=== PATIENT | male | born 1970 | race Caucasian/White ===

== ENCOUNTER 2017-02-21 08:18 | Emergency (ER) | payer BC ==
[~2017-02-21] VITALS: Ht 172.7 cm; Wt 90.7 kg
[~2017-02-21 08:18] MED LIST: ASPI-482 PO; LEVE500T56 PO
[2017-02-21] MEDS ORDERED: IV NORMAL SALINE 1000ML BAG 1,000 ML IV ONE ×3 (08:30→10:30)
[2017-02-21 08:36] LABS: BASO # 0.1 x10^3/uL (0.0-0.2); BASO % 1 % (0-3); EOS % 0 % (0-3); HEMATOCRIT 46.7 % (39.0-53.0); HEMOGLOBIN 15.3 g/dL (13.0-17.5); LYMPH # 2.7 x10^3/uL (1.0-4.8); LYMPH % 19 % (24-48); MEAN CORPUSCULAR HEMOGLOBIN 29 pg (25-35); MEAN CORPUSCULAR HGB CONC 33 g/dL (31-37); MEAN CORPUSCULAR VOLUME 89 fL (79-100); MONO % 5 % (0-9); NEUT % 75 % (31-73); PLATELET COUNT 244 x10^3/uL (140-400); RED BLOOD COUNT 5.27 x10^6/uL (4.30-5.70); RED CELL DISTRIBUTION WIDTH 14.1 % (11.5-14.5); WHITE BLOOD COUNT 13.7 x10^3/uL (4.0-11.0)
[2017-02-21] MEDS ORDERED: IOHEXOL 300 MG/ML 75 ML VIAL IV ONE (08:45)
[2017-02-21] MEDS ORDERED: PHENYTOIN SODIUM EXTENDED 100 MG CAPSULE PO ONE ×2 (08:45→10:00)
[2017-02-21] MEDS ORDERED: PHEN100C PO (08:53)
--- NOTE | 2017-02-21 08:53 | PHYS DOC ---
Past Medical History Past Medical History: Seizure Past Surgical History: No Surgical History Alcohol Use: None Drug Use: None Adult General Chief Complaint Chief Complaint: SEIZURE HPI HPI Patient is a 46 year old male who presents after a witnessed seizure. Patient has known history of seizure disorder, and initially states he doesn't think he supposed to be on any seizure medication. Records show he supposed to be on Keppra and patient states "I didn't like the way it made me feel" and refuses to take it. Patient is unsure of why he has seizures, diagnosed in recent years. Denies any alcohol or drugs, no fall or trauma. Patient was sitting in a truck with a friend who is dropping him off work when the seizure occurred. His approximated the last 7 minutes. Patient did not lose bladder, states he does have a sore tongue but this was from yesterday when he thinks maybe had a seizure. Patient has seen Dr. barry in the past, had a negative brain MRI in recent months. Patient denies any focal weakness. Patient does not follow with the primary care physician. Patient has some sort of psychiatric disorder, record shows similar episodes where he speaks in tangential thoughts, has difficulty answering direct questions. When asked about the chest pain he described yesterday, he starts to talk of feeling like there is a lego stuck in his chest. Review of Systems Review of Systems Constitutional: Denies fever or chills [] Eyes: Denies change in visual acuity, redness, or eye pain [] HENT: Denies nasal congestion or sore throat [] Respiratory: Denies cough or shortness of breath [] Cardiovascular: Denies current chest pain, reports he was having chest pain yesterday, vague in nature GI: Denies abdominal pain, nausea, vomiting, bloody stools or diarrhea [] : Denies dysuria or hematuria [] Musculoskeletal: Denies back pain or joint pain [] Integument: Denies rash or skin lesions [] Neurologic: Denies headache, focal weakness or sensory changes [] Current Medications Current Medications Current Medications Medications (Trade) Dose Ordered Sig/Whitley Start Time Stop Time Status Last Admin Dose Admin Cefepime HCl 2 gm/ Sodium Chloride 100 ml @ 200 mls/hr 1X ONCE 02/21/17 09:30 02/21/17 09:59 DC 02/21/17 09:51 200 MLS/HR Iohexol (Omnipaque 300 Mg/ml) 75 ml 1X ONCE 02/21/17 08:45 02/21/17 08:47 DC 02/21/17 09:07 75 ML Phenytoin Sodium (Dilantin) 500 mg 1X ONCE 02/21/17 10:00 02/21/17 10:01 DC 02/21/17 09:58 500 MG Sodium Chloride 1,000 ml @ 1,000 mls/hr 1X ONCE 02/21/17 10:30 02/21/17 11:29 DC 02/21/17 10:32 1,000 MLS/HR Allergies Allergies Allergies Coded Allergies Type Severity Reaction Last Updated Verified Penicillins Allergy Intermediate 07/09/16 Yes Physical Exam Physical Exam Constitutional: Well developed, well nourished, no acute distress, non-toxic appearance. [] HENT: Normocephalic, atraumatic, bilateral external ears normal, oropharynx moist, no oral exudates, nose normal. [] Eyes: PERRLA, EOMI, conjunctiva normal, no discharge. [] Neck: Normal range of motion, no tenderness, supple, no stridor. [] Cardiovascular:Heart rate tachycardia with regular rhythm, no murmur [] Lungs & Thorax: Bilateral breath sounds clear to auscultation, no wheeze or crackles Abdomen: Bowel sounds normal, soft, no tenderness, no masses, no pulsatile masses. [] Skin: Warm, dry, no erythema, no rash. [] Back: No tenderness, no CVA tenderness. [] Extremities: No tenderness, no cyanosis, no clubbing, ROM intact, no edema. [] Neurologic: Alert and oriented X 3, normal motor function, normal sensory function, no focal deficits noted. [] Psychologic: odd affect, tangential thoughts Current Patient Data Vital Signs Vital Signs Date Time Temp Pulse Resp B/P (MAP) Pulse Ox O2 Delivery O2 Flow Rate FiO2 02/21/17 12:40 100 18 145/91 (109) 96 Room Air 02/21/17 08:20 98.9 98.9 Lab Values Laboratory Tests Test 02/21/17 08:25 02/21/17 09:00 02/21/17 09:20 02/21/17 11:32 White Blood Count 13.7 x10^3/uL (4.0-11.0) H Red Blood Count 5.27 x10^6/uL (4.30-5.70) Hemoglobin 15.3 g/dL (13.0-17.5) Hematocrit 46.7 % (39.0-53.0) Mean Corpuscular Volume 89 fL (79-100) Mean Corpuscular Hemoglobin 29 pg (25-35) Mean Corpuscular Hemoglobin Concent 33 g/dL (31-37) Red Cell Distribution Width 14.1 % (11.5-14.5) Platelet Count 244 x10^3/uL (140-400) Neutrophils (%) (Auto) 75 % (31-73) H Lymphocytes (%) (Auto) 19 % (24-48) L Monocytes (%) (Auto) 5 % (0-9) Eosinophils (%) (Auto) 0 % (0-3) Basophils (%) (Auto) 1 % (0-3) Neutrophils # (Auto) 10.2 x10^3uL (1.8-7.7) H Lymphocytes # (Auto) 2.7 x10^3/uL (1.0-4.8) Monocytes # (Auto) 0.7 x10^3/uL (0.0-1.1) Eosinophils # (Auto) 0.1 x10^3/uL (0.0-0.7) Basophils # (Auto) 0.1 x10^3/uL (0.0-0.2) Lactic Acid Level 10.2 mmol/L (0.4-2.0) *H 1.6 mmol/L (0.4-2.0) Troponin I Quantitative < 0.017 ng/mL (0.000-0.055) Ethyl Alcohol Level < 10 mg/dL (0-10) Urine Collection Type Unknown Urine Color Yellow Urine Clarity Clear Urine pH 6.0 Urine Specific [place] 1.020 Urine Protein 30 mg/dL (NEG-TRACE) Urine Glucose (UA) Negative mg/dL (NEG) Urine Ketones (Stick) Negative mg/dL (NEG) Urine Blood Trace (NEG) Urine Nitrite Negative (NEG) Urine Bilirubin Negative (NEG) Urine Urobilinogen Dipstick 0.2 mg/dL (0.2 mg/dL) Urine Leukocyte Esterase Negative (NEG) Urine RBC 0 /HPF (0-2) Urine WBC Occ /HPF (0-4) Urine Squamous Epithelial Cells Few /LPF Urine Bacteria 0 /HPF (0-FEW) Urine Hyaline Casts Few /HPF Urine Mucus Mod /LPF Urine Sperm Present /HPF Urine Opiates Screen Neg (NEG) Urine Methadone Screen Neg (NEG) Urine Barbiturates Neg (NEG) Urine Phencyclidine Screen Neg (NEG) Urine Amphetamine/Methamphetamine Neg (NEG) Urine Benzodiazepines Screen Neg (NEG) Urine Cocaine Screen Neg (NEG) Urine Cannabinoids Screen Neg (NEG) Urine Ethyl Alcohol Neg (NEG) Sodium Level 138 mmol/L (136-145) Potassium Level 3.8 mmol/L (3.5-5.1) Chloride Level 105 mmol/L (98-107) Carbon Dioxide Level 23 mmol/L (21-32) Anion Gap 10 (6-14) Blood Urea Nitrogen 13 mg/dL (8-26) Creatinine 1.2 mg/dL (0.7-1.3) Estimated GFR (Cockcroft-Gault) 64.6 BUN/Creatinine Ratio 11 (6-20) Glucose Level 103 mg/dL (70-99) H Calcium Level 8.1 mg/dL (8.5-10.1) L Total Bilirubin 0.3 mg/dL (0.2-1.0) Aspartate Amino Transferase (AST) 18 U/L (15-37) Alanine Aminotransferase (ALT) 24 U/L (16-63) Alkaline Phosphatase 42 U/L (46-116) L Creatine Kinase 226 U/L (39-308) Total Protein 6.5 g/dL (6.4-8.2) Albumin 3.3 g/dL (3.4-5.0) L Albumin/Globulin Ratio 1.0 (1.0-1.7) Laboratory Tests 02/21/17 08:25 Laboratory Tests 02/21/17 09:20 EKG EKG 118 bpm, sinus tach, normal axis, normal intervals, no ST elevation or depression appreciated, nonischemic T waves [] Radiology/Procedures Radiology/Procedures CTA: Impression: There is no CT evidence of pulmonary embolism. Course & Med Decision Making Course & Med Decision Making Pertinent Labs and Imaging studies reviewed. (See chart for details) Pt meets SIRS criteria, lactate and blood cultures obtained, 1L NS IV bolus given. Pt loaded with 500mg po dilantin as he states he will take that but won' t take Keppra. labs/ua/uds/etoh ordered. CTA ordered due to O2 sats of 91% and tachy. Negative CTA, Lactae elevated and pt received significant fluid boluses. Pt given IV zosyn, although clear source not found. Repeat lactate normal, thought to be 2/2 to the seizure. Received second loading dose of dilantin and discharged with 300mg per day and recommended close f/u with neurology. Dragon Disclaimer Dragon Disclaimer This electronic medical record was generated, in whole or in part, using a voice recognition dictation system. Departure Departure Impression: Primary Impression: Seizure Additional Impression: Noncompliance Disposition: HOME, SELF-CARE Condition: STABLE Referrals: UNKNOWN PCP NAME (PCP) Scripts Phenytoin Sodium Extended (DILANTIN) 100 Mg Capsule 1 CAP PO TID, #90 CAP 0 Refills Prov: FELICITA LARA MD 02/21/17 Problem Qualifiers FELICITA LARA MD Feb 21, 2017 08:53
[2017-02-21 09:18] LABS: BARBITURATES NEG (NEG); BENZODIAZEPINES NEG (NEG); CANNABINOIDS NEG (NEG); COCAINE NEG (NEG); METHADONE NEG (NEG); OPIATES NEG (NEG); PHENCYCLIDINE NEG (NEG)
[2017-02-21] MEDS ORDERED: CEFEPIME HCL 2 GM in IV NORMAL SALINE 100ML 100 ML IV ONE (09:30)
[2017-02-21 09:40] LABS: CALCIUM 8.1 mg/dL (8.5-10.1); CREATININE 1.2 mg/dL (0.7-1.3); GFR 64.6; POTASSIUM 3.8 mmol/L (3.5-5.1)
--- NOTE | 2017-02-21 09:44 | RAD ---
CTA of the chest with contrast (pulmonary embolism protocol) 02/21/2017 Clinical History: Tachycardia with low oxygen saturation and chest pain. Technique: After the intravenous administration of 75 mL of Isovue-370, contiguous, 2 mm axial sections were obtained through the chest. 3-D MIP coronal and sagittal reconstructed images were obtained. One or more of the following individualized dose reduction techniques were utilized for this study: 1. Automated exposure control. 2. Adjustment of the mA and/or kV according to patient size. 3. Use of iterative reconstruction technique. Findings: No filling defects are seen within the major branches of either pulmonary artery. The heart is normal in size. The thoracic aorta is tortuous but tapers normally. No acute pulmonary infiltrate is seen. No pleural effusion or pneumothorax is noted. Degenerative changes are seen involving the thoracic spine. Impression: There is no CT evidence of pulmonary embolism.
[2017-02-21 09:46] LABS: ALBUMIN 3.3 g/dL (3.4-5.0); TOTAL BILIRUBIN 0.3 mg/dL (0.2-1.0); TOTAL PROTEIN 6.5 g/dL (6.4-8.2)
--- NOTE | 2017-02-21 09:52 | EKG ---
[facility] [address] [place] [address] Test Date: 2017-02-21 Test Time: 08:40:27 Pat Name: ETHEL SALMERON Department: Room: Gender: M Recycling Specialist: JASON : 1970 Requested By: FELICITA LARA Order Number: [id number] Reading MD: Roberto Hatch Measurements Intervals [place] Rate: 118 P: [place]: QRS: 61 QRSD: 106 T: 27 QT: 338 QTc: 476 Interpretive Statements SINUS TACHYCARDIA NON-SPECIFIC ST/T CHANGES Electronically Signed On 02-21-2017 16:55:57 CDT by Roberto Hatch
[2017-02-21 10:06] LABS: BILIRUBIN,URINE NEGATIVE (NEG); GLUCOSE,URINE NEGATIVE (NEG); NITRITE,URINE NEGATIVE (NEG); PROTEIN,URINE 30 mg/dL (NEG-TRACE); UROBILINOGEN,URINE 0.2 mg/dL (0.2 mg/dL)
[2017-02-21 10:40] LABS: BACTERIA,URINE 0 /HPF (0-FEW); RBC,URINE 0 /HPF (0-2); SPERM,URINE PRESENT /HPF; SQUAMOUS EPITHELIAL CELL,UR FEW /LPF; WBC,URINE OCC /HPF (0-4)
[2017-02-21 12:40] VITALS: BP 145/91
[2017-02-24 08:17] LABS: POTASSIUM ISTAT 4.2 mmol/L (3.5-5.0)
== END 2017-02-21 12:47 | disposition home or self-care (01) ==
LOC: ER 08:18
DX: R56.9 Unspecified convulsions (principal); Z91.19 Patient's noncompliance with other medical treatment and regimen; Z88.0 Allergy status to penicillin
CPT/HCPCS: 36415; 71275; 80047; 80053; 80305; 80320; 81001; 82550; 83605; 84484; 85027; 87040; 93005; 96361; 96365; 99285; J0692; J7030; Q9967; G0480; G0481

== ENCOUNTER 2017-07-23 17:41 | Emergency (ER) | payer BC ==
[~2017-07-23] VITALS: Ht 175.3 cm; Wt 90.7 kg
[~2017-07-23 17:41] MED LIST changes: +PHEN100C PO
[2017-07-23] MEDS ORDERED: IV NORMAL SALINE 1000ML BAG 1,000 ML IV ONE (18:00)
[2017-07-23 18:22] LABS: BASO # 0.1 x10^3/uL (0.0-0.2); BASO % 1 % (0-3); EOS % 1 % (0-3); HEMATOCRIT 48.1 % (39.0-53.0); HEMOGLOBIN 15.9 g/dL (13.0-17.5); LYMPH # 2.2 x10^3/uL (1.0-4.8); LYMPH % 18 % (24-48); MEAN CORPUSCULAR HEMOGLOBIN 29 pg (25-35); MEAN CORPUSCULAR HGB CONC 33 g/dL (31-37); MEAN CORPUSCULAR VOLUME 88 fL (79-100); MONO % 6 % (0-9); NEUT % 75 % (31-73); PLATELET COUNT 242 x10^3/uL (140-400); RED BLOOD COUNT 5.49 x10^6/uL (4.30-5.70); RED CELL DISTRIBUTION WIDTH 14.2 % (11.5-14.5); WHITE BLOOD COUNT 12.3 x10^3/uL (4.0-11.0)
[2017-07-23 18:33] LABS: CALCIUM 9.3 mg/dL (8.5-10.1); CREATININE 1.4 mg/dL (0.7-1.3); GFR 53.9; POTASSIUM 4.2 mmol/L (3.5-5.1)
[2017-07-23 18:39] LABS: TOTAL BILIRUBIN 0.3 mg/dL (0.2-1.0); TOTAL PROTEIN 7.9 g/dL (6.4-8.2)
--- NOTE | 2017-07-23 18:55 | RAD ---
CT HEAD WO CONTRAST dated 07/23/2017 5:59 PM Indication:seizure, left forehead injury, prior sent Comparison: May 26, 2016 exam. Technique: One or more of the following individualized dose reduction techniques were utilized for this examination: 1. Automated exposure control 2. Adjustment of the mA and/or kV according to patient size 3. Use of iterative reconstruction technique Findings: The ventricles and sulci are normal in size. There is no evidence of hemorrhage or infarction. No mass lesion is seen. There is a hematoma in the soft tissues of the left forehead. Bone windows show no fracture. Visualized portions of the paranasal sinuses and mastoid air cells are clear. IMPRESSION: No intracranial abnormality is seen. Extracranial hematoma in the left forehead. Electronically signed by: Padma Robb MD (07/23/2017 6:52 PM) [facility]
[2017-07-23 19:50] VITALS: BP 140/90
[2017-07-23] MEDS ORDERED: LEVE500T56 PO (20:11)
--- NOTE | 2017-07-23 20:11 | PHYS DOC ---
Past Medical History Past Medical History: Seizure Past Surgical History: No Surgical History Alcohol Use: None Drug Use: None Adult General Chief Complaint Chief Complaint: SEIZURE HPI HPI Patient is a 47 year old male brought to the ED by EMS after reported seizure. The patient was playing bingo and slipped out of his chair onto the floor and had a grand mal seizure that lasted about 3 minutes. Bystanders reported seizure activity and called 911. Patient's friend stated that he is known to have a seizure disorder and they believe he does not take his medications. Patient presented to the ED apparently postictal. Alert, but not really able to answer questions, answered many questions "I don't know". EMS felt that the presentation was consistent with generalized seizure. He did not have any treatment prehospital. I did review the patient's record and he was here in the past after a generalized seizure. His history and evaluation were consistent with generalized seizure. At that time, he was given an IV Dilantin load and prescribed Dilantin. Patient did not have any family or friends who came in with him. Review of Systems Review of Systems Patient is postictal on presentation and not able to give a history, therefore review of systems not able to be obtained Current Medications Current Medications Current Medications Medications (Trade) Dose Ordered Sig/Whitley Start Time Stop Time Status Last Admin Dose Admin Levetiracetam 1000 mg/Sodium Chloride 110 ml @ 440 mls/hr 1X ONCE 07/23/17 18:15 07/23/17 18:29 DC 07/23/17 18:52 440 MLS/HR Sodium Chloride 1,000 ml @ 1,000 mls/hr 1X ONCE 07/23/17 18:00 07/23/17 18:59 DC 07/23/17 18:53 1,000 MLS/HR Allergies Allergies Allergies Coded Allergies Type Severity Reaction Last Updated Verified Penicillins Allergy Intermediate 07/09/16 Yes Physical Exam Physical Exam Constitutional: Well developed, well nourished, no acute distress, non-toxic appearance. Alert, vital signs stable, appears postictal HENT: Large hematoma over the left eyebrow, no laceration, bilateral external ears normal, oropharynx moist, no oral exudates, nose normal. [] Eyes: PERRLA, EOMI, conjunctiva normal, no discharge. [] Neck: Normal range of motion, no tenderness, supple, no stridor. Entirely nontender to palpation. Cardiovascular:Heart rate regular rhythm, no murmur [] Lungs & Thorax: Bilateral breath sounds clear to auscultation [] Abdomen: Bowel sounds normal, soft, no tenderness, no masses, no pulsatile masses. [] Skin: Warm, dry, no erythema, no rash. [] Extremities: No tenderness, no cyanosis, no clubbing, ROM intact, no edema. [] Neurologic: Alert , normal motor function, no focal deficits noted. [] Current Patient Data Vital Signs Vital Signs Date Time Temp Pulse Resp B/P (MAP) Pulse Ox O2 Delivery O2 Flow Rate FiO2 07/23/17 19:50 104 17 97 07/23/17 18:06 98.2 124/65 (84) Room Air 98.2 Lab Values Laboratory Tests Test 07/23/17 18:14 White Blood Count 12.3 x10^3/uL (4.0-11.0) H Red Blood Count 5.49 x10^6/uL (4.30-5.70) Hemoglobin 15.9 g/dL (13.0-17.5) Hematocrit 48.1 % (39.0-53.0) Mean Corpuscular Volume 88 fL (79-100) Mean Corpuscular Hemoglobin 29 pg (25-35) Mean Corpuscular Hemoglobin Concent 33 g/dL (31-37) Red Cell Distribution Width 14.2 % (11.5-14.5) Platelet Count 242 x10^3/uL (140-400) Neutrophils (%) (Auto) 75 % (31-73) H Lymphocytes (%) (Auto) 18 % (24-48) L Monocytes (%) (Auto) 6 % (0-9) Eosinophils (%) (Auto) 1 % (0-3) Basophils (%) (Auto) 1 % (0-3) Neutrophils # (Auto) 9.3 x10^3uL (1.8-7.7) H Lymphocytes # (Auto) 2.2 x10^3/uL (1.0-4.8) Monocytes # (Auto) 0.7 x10^3/uL (0.0-1.1) Eosinophils # (Auto) 0.1 x10^3/uL (0.0-0.7) Basophils # (Auto) 0.1 x10^3/uL (0.0-0.2) Sodium Level 139 mmol/L (136-145) Potassium Level 4.2 mmol/L (3.5-5.1) Chloride Level 102 mmol/L (98-107) Carbon Dioxide Level 22 mmol/L (21-32) Anion Gap 15 (6-14) H Blood Urea Nitrogen 17 mg/dL (8-26) Creatinine 1.4 mg/dL (0.7-1.3) H Estimated GFR (Cockcroft-Gault) 53.9 BUN/Creatinine Ratio 12 (6-20) Glucose Level 125 mg/dL (70-99) H Lactic Acid Level 8.2 mmol/L (0.4-2.0) *H Calcium Level 9.3 mg/dL (8.5-10.1) Total Bilirubin 0.3 mg/dL (0.2-1.0) Aspartate Amino Transferase (AST) 18 U/L (15-37) Alanine Aminotransferase (ALT) 20 U/L (16-63) Alkaline Phosphatase 52 U/L (46-116) Total Protein 7.9 g/dL (6.4-8.2) Albumin 4.0 g/dL (3.4-5.0) Albumin/Globulin Ratio 1.0 (1.0-1.7) Laboratory Tests 07/23/17 18:14 Laboratory Tests 07/23/17 18:14 EKG EKG [] Radiology/Procedures Radiology/Procedures CT scan of the head read by the radiologist. No intracranial abnormality.[] Course & Med Decision Making Course & Med Decision Making Pertinent Labs and Imaging studies reviewed. (See chart for details) 47-year-old male presents to the ED after a reported generalized seizure. He presented postictal. After CT scan, he was much more alert. Patient was able to contribute more to the history after that. Patient states that he has had seizures before. He states he saw a neurologist to told him that he did not have seizures. He states that sometimes he has an episode and has bitten his timing. Today, his presentation is entirely consistent with a generalized seizure. The history from bystanders, the patient was significantly postictal. The patient has a elevated lactic acid, I feel very confident that the patient had a generalized seizure. I discussed this with him. He states the last thing he was given in the ED for seizures, which chart review shows was Dilantin, made him feel bad and he didn't like it. It made him feel like he couldn't think straight and "kind of like a zombie". He believes he has taken Keppra before and he doesn't recall whether he had a problem with Keppra. I talked to the patient at length and really encouraged him to take some type of medication for his seizures. We agreed on Keppra since Dilantin as what caused him to have unpleasant side effects before. He was loaded with an IV load of Keppra in the ED and I gave him a prescription for that. He does have prescription insurance and states he'll be able to go get that filled tomorrow. The patient does not drive. He lives alone although sometimes a friend stays with him. 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 I encourage the patient to follow up with neurology, get his prescription filled and take it as directed. He is agreeable to give that a try. See instructions for plan. The patient was alert, appropriate, and stable for discharge. We got him a taxi to his home. [] Dragon Disclaimer Dragon Disclaimer This electronic medical record was generated, in whole or in part, using a voice recognition dictation system. Departure Departure Impression: Primary Impression: Seizure Additional Impression: Traumatic hematoma of forehead Disposition: 01 HOME, SELF-CARE Condition: STABLE Referrals: NO PCP (PCP) Patient Instructions: Hematoma, [id number], Seizure, Adult Additional Instructions: I realize that in the past, there was some question as to whether you're having seizures or not. I can tell you with certainty that you had a seizure today. The episode as described by bystanders, paramedics, and your condition when you came to the emergency department are all consistent with a seizure. Lab test done in the emergency department is consistent with a seizure. I also reviewed your record and as of February of this year you had a visit here that also was thought to be a seizure. Today we gave you IV seizure medication in the emergency department. It's important to get the prescription filled and take seizure medication regularly. I gave you a referral to a neurologist here at [place] for follow-up. Also, see your primary care doctor. It's important to take seizure medicine daily without stopping. You only have a 30 day apply and you need to see your doctor or a neurologist soon to get a new prescription. Scripts Levetiracetam (KEPPRA) 500 Mg Tablet 1 TAB PO BID for seizures, #60 TAB 0 Refills Prov: KAY ROSS MD 07/23/17 Problem Qualifiers KAY ROSS MD Jul 23, 2017 20:11
== END 2017-07-23 20:27 | disposition home or self-care (01) ==
LOC: ER 17:41
DX: G40.409 Other generalized epilepsy and epileptic syndromes, not intractable, without status epilepticus (principal); S00.83XA Contusion of other part of head, initial encounter; Z88.0 Allergy status to penicillin; W07.XXXA Fall from chair, initial encounter; Y93.89 Activity, other specified; Y92.89 Other specified places as the place of occurrence of the external cause; Y99.8 Other external cause status
CPT/HCPCS: 36415; 70450; 80053; 83605; 85025; 96365; 99285; J1953; J7030

== ENCOUNTER 2017-12-04 13:13 | Emergency (ER) | payer BC ==
[2017-12-04] MEDS: ASPIRIN CHEWABLE 81 MG TABLET. PO (14:01)
[2017-12-04] MEDS: IV NORMAL SALINE 1000ML BAG 1,000 ML IV (14:02)
[2017-12-04] MEDS: KETOROLAC 30 MG/ML INJ. IV (15:33)
[2017-12-04] MEDS: levETIRAcetam 500 MG TABLET PO (17:20)
== END 2017-12-04 18:24 | disposition home or self-care (01) ==
LOC: ER 18:24
DX: R56.9 Unspecified convulsions (principal); K14.8 Other diseases of tongue; Z88.0 Allergy status to penicillin; Z79.82 Long term (current) use of aspirin
CPT/HCPCS: 96361; 96374; 99284-25; J1885; J7030

== ENCOUNTER 2018-03-18 12:08 | Emergency (ER) | payer BC ==
[2018-03-18] MEDS: IV NORMAL SALINE 1000ML BAG 1,000 ML IV (13:00)
[2018-03-18] MEDS: levETIRAcetam 1,000 MG in IV DEXTROSE 5% 100ML 100 ML IV (13:02)
[2018-03-18 13:21] LABS: ANION GAP 13 (6-14); BLOOD UREA NITROGEN 15 mg/dL (8-26); CALCIUM 8.6 mg/dL (8.5-10.1); CARBON DIOXIDE 20 mmol/L (21-32); CHLORIDE 103 mmol/L (98-107); CREATININE 1.3 mg/dL (0.7-1.3); GFR 58.7; GLUCOSE 138 mg/dL (70-99); POTASSIUM 4.1 mmol/L (3.5-5.1); SODIUM 136 mmol/L (136-145)
== END 2018-03-18 14:03 | disposition home or self-care (01) ==
LOC: ER 12:08
DX: G40.909 Epilepsy, unspecified, not intractable, without status epilepticus (principal); Z88.0 Allergy status to penicillin
CPT/HCPCS: 36415; 70450; 80048; 93005; 96365; 99285-25; J1953; J7030

== ENCOUNTER 2018-06-01 15:24 | Emergency (ER) | payer BC ==
[~2018-06-01] VITALS: Ht 182.9 cm; Wt 95.3 kg
[2018-06-01] MEDS ORDERED: IV NORMAL SALINE 1000ML BAG 1,000 ML IV ONE ×2 (15:45→18:00)
--- NOTE | 2018-06-01 15:51 | PHYS DOC ---
Past Medical History Past Medical History: Seizure Additional Past Medical Histor: "heart conduction dysfunction" Past Surgical History: No Surgical History Alcohol Use: None Drug Use: None Adult General Chief Complaint Chief Complaint: SEIZURE HPI HPI Patient is a 47 year old male who presents with a reported seizure that occurred while he was at the [facility] just prior to arrival. The patient presented to the emergency department via EMS. The patient has a long history of seizure disorder and takes Keppra 500 mg by mouth twice a day. The patient states that he has been taking his medicine. The patient has not followed up with a neurologist and states that he has been prescribed Keppra at his emergency room visits. He states that his precursor to seizure activity is GI upset. The patient states that he will feel like he either needs to have a bowel movement or vomit and then the next thing he knows he wakes up in the emergency department. He denies any injury today he denies any recent illness. He denies headache, gait changes or vision changes. The patient is currently awake and talking in the room. Review of Systems Review of Systems Constitutional: Denies fever or chills [] Eyes: Denies change in visual acuity, redness, or eye pain [] HENT: Denies nasal congestion or sore throat [] Respiratory: Denies cough or shortness of breath [] Cardiovascular: No additional information not addressed in HPI [] GI: Denies abdominal pain, nausea, vomiting, bloody stools or diarrhea [] : Denies dysuria or hematuria [] Musculoskeletal: Denies back pain or joint pain [] Integument: Denies rash or skin lesions [] Neurologic: See history of present illness Endocrine: Denies polyuria or polydipsia [] All other systems were reviewed and found to be within normal limits, except as documented in this note. Current Medications Current Medications Current Medications Medications (Trade) Dose Ordered Sig/Whitley Start Time Stop Time Status Last Admin Dose Admin Acetaminophen (Tylenol) 650 mg PRN Q6HRS PRN 06/01/18 18:15 Docusate Sodium (Colace) 100 mg PRN DAILY PRN 06/01/18 18:15 Enoxaparin Sodium (Lovenox 40mg Syringe) 40 mg QHS 06/01/18 21:00 Levetiracetam (Keppra) 500 mg BID 06/01/18 21:00 Morphine Sulfate (Morphine Sulfate) 2 mg PRN Q2HR PRN 06/01/18 18:15 Ondansetron HCl (Zofran) 4 mg PRN Q6HRS PRN 06/01/18 18:15 Sodium Chloride 1,000 ml @ 125 mls/hr Q8H 06/01/18 18:15 Tramadol HCl (Ultram) 50 mg PRN Q6HRS PRN 06/01/18 18:15 Allergies Allergies Allergies Coded Allergies Type Severity Reaction Last Updated Verified Penicillins Allergy Intermediate 07/09/16 Yes Physical Exam Physical Exam Constitutional: Well developed, well nourished, no acute distress, non-toxic appearance. [] HENT: Normocephalic, atraumatic, bilateral external ears normal, oropharynx moist, no oral exudates, nose normal. [] Eyes: PERRLA, EOMI, conjunctiva normal, no discharge. [] Neck: Normal range of motion, no tenderness, supple, no stridor. [] Cardiovascular:Heart rate regular rhythm, no murmur [] Lungs & Thorax: Bilateral breath sounds clear to auscultation [] Abdomen: Bowel sounds normal, soft, no tenderness, no masses, no pulsatile masses. [] Skin: Warm, dry, no erythema, no rash. [] Back: No tenderness, no CVA tenderness. [] Extremities: No tenderness, no cyanosis, no clubbing, ROM intact, no edema. [] Neurologic: Alert and oriented X 3, normal motor function, normal sensory function, no focal deficits noted, cranial nerves II through XII are grossly intact. [] Psychologic: Affect normal, judgement normal, mood normal. [] Current Patient Data Vital Signs Vital Signs Date Time Temp Pulse Resp B/P (MAP) Pulse Ox O2 Delivery O2 Flow Rate FiO2 06/01/18 19:49 94 18 99 06/01/18 15:38 98.6 136/79 (98) 98.6 Lab Values Laboratory Tests Test 06/01/18 15:45 06/01/18 16:40 06/01/18 19:45 White Blood Count 10.5 x10^3/uL (4.0-11.0) Red Blood Count 5.46 x10^6/uL (4.30-5.70) Hemoglobin 16.2 g/dL (13.0-17.5) Hematocrit 47.5 % (39.0-53.0) Mean Corpuscular Volume 87 fL (79-100) Mean Corpuscular Hemoglobin 30 pg (25-35) Mean Corpuscular Hemoglobin Concent 34 g/dL (31-37) Red Cell Distribution Width 13.9 % (11.5-14.5) Platelet Count 243 x10^3/uL (140-400) Neutrophils (%) (Auto) 69 % (31-73) Lymphocytes (%) (Auto) 24 % (24-48) Monocytes (%) (Auto) 5 % (0-9) Eosinophils (%) (Auto) 1 % (0-3) Basophils (%) (Auto) 1 % (0-3) Neutrophils # (Auto) 7.2 x10^3uL (1.8-7.7) Lymphocytes # (Auto) 2.5 x10^3/uL (1.0-4.8) Monocytes # (Auto) 0.6 x10^3/uL (0.0-1.1) Eosinophils # (Auto) 0.1 x10^3/uL (0.0-0.7) Basophils # (Auto) 0.1 x10^3/uL (0.0-0.2) Prothrombin Time 13.3 SEC (11.7-14.0) Prothrombin Time INR 1.1 (0.8-1.1) PTT 24 SEC (24-38) Sodium Level 140 mmol/L (136-145) Potassium Level 3.9 mmol/L (3.5-5.1) Chloride Level 103 mmol/L (98-107) Carbon Dioxide Level 20 mmol/L (21-32) L Anion Gap 17 (6-14) H Blood Urea Nitrogen 12 mg/dL (8-26) Creatinine 1.3 mg/dL (0.7-1.3) Estimated GFR (Cockcroft-Gault) 58.7 Glucose Level 122 mg/dL (70-99) H Lactic Acid Level 8.6 mmol/L (0.4-2.0) *H 1.5 mmol/L (0.4-2.0) Calcium Level 9.1 mg/dL (8.5-10.1) Total Bilirubin 0.3 mg/dL (0.2-1.0) Direct Bilirubin 0.1 mg/dL (0.0-0.2) Aspartate Amino Transferase (AST) 26 U/L (15-37) Alanine Aminotransferase (ALT) 27 U/L (16-63) Alkaline Phosphatase 57 U/L (46-116) Ammonia 63 mcmol/L (11-34) H Creatine Kinase 212 U/L (39-308) Total Protein 8.3 g/dL (6.4-8.2) H Albumin 4.1 g/dL (3.4-5.0) Salicylates Level < 2.8 mg/dL (2.8-20.0) L Salicylate Last Dose Date Unk Salicylate Last Dose Time Unk Acetaminophen Level < 2 mcg/ml (10-30) L Acetaminophen Last Dose Date Unk Acetaminophen Last Dose Time Unk Ethyl Alcohol Level < 10 mg/dL (0-10) Urine Color Yellow Urine Clarity Clear Urine pH 6.0 Urine Specific [place] 1.020 Urine Protein 30 mg/dL (NEG-TRACE) Urine Glucose (UA) Negative mg/dL (NEG) Urine Ketones (Stick) Negative mg/dL (NEG) Urine Blood Negative (NEG) Urine Nitrite Negative (NEG) Urine Bilirubin Negative (NEG) Urine Urobilinogen Dipstick 0.2 mg/dL (0.2 mg/dL) Urine Leukocyte Esterase Negative (NEG) Urine RBC 0 /HPF (0-2) Urine WBC 0 /HPF (0-4) Urine Bacteria 0 /HPF (0-FEW) Urine Hyaline Casts Moderate /HPF Urine Mucus Marked /LPF Urine Sperm Present /HPF Urine Opiates Screen Neg (NEG) Urine Methadone Screen Neg (NEG) Urine Barbiturates Neg (NEG) Urine Phencyclidine Screen Neg (NEG) Urine Amphetamine/Methamphetamine Neg (NEG) Urine Benzodiazepines Screen Neg (NEG) Urine Cocaine Screen Neg (NEG) Urine Cannabinoids Screen Neg (NEG) Urine Ethyl Alcohol Neg (NEG) Laboratory Tests 06/01/18 15:45 Laboratory Tests 06/01/18 15:45 EKG EKG [] Radiology/Procedures Radiology/Procedures [] Course & Med Decision Making Course & Med Decision Making Pertinent Labs and Imaging studies reviewed. (See chart for details) [] Dragon Disclaimer Dragon Disclaimer This electronic medical record was generated, in whole or in part, using a voice recognition dictation system. Departure Departure Impression: Primary Impression: Seizure Disposition: 01 HOME, SELF-CARE Condition: STABLE Referrals: NO PCP (PCP) GABBY ALVAREZ MD Patient Instructions: Seizure Disorder, Child, Generalized Tonic-Clonic Additional Instructions: Follow-up with Dr. Jacinto or a neurologist of your choice for further evaluation and treatment of your seizure disorder. Take your Keppra as prescribed. CARINA MANCERA APRN Jun 01, 2018 15:51
[2018-06-01 15:56] LABS: BASO # 0.1 x10^3/uL (0.0-0.2); BASO % 1 % (0-3); EOS # 0.1 x10^3/uL (0.0-0.7); EOS % 1 % (0-3); HEMATOCRIT 47.5 % (39.0-53.0); HEMOGLOBIN 16.2 g/dL (13.0-17.5); LYMPH # 2.5 x10^3/uL (1.0-4.8); LYMPH % 24 % (24-48); MEAN CORPUSCULAR HEMOGLOBIN 30 pg (25-35); MEAN CORPUSCULAR HGB CONC 34 g/dL (31-37); MEAN CORPUSCULAR VOLUME 87 fL (79-100); MONO # 0.6 x10^3/uL (0.0-1.1); MONO % 5 % (0-9); NEUT # 7.2 x10^3uL (1.8-7.7); NEUT % 69 % (31-73); PLATELET COUNT 243 x10^3/uL (140-400); RED BLOOD COUNT 5.46 x10^6/uL (4.30-5.70); RED CELL DISTRIBUTION WIDTH 13.9 % (11.5-14.5); WHITE BLOOD COUNT 10.5 x10^3/uL (4.0-11.0)
[2018-06-01 16:07] LABS: PROTHROMBIN TIME PATIENT 13.3 SEC (11.7-14.0)
[2018-06-01 16:16] LABS: CALCIUM 9.1 mg/dL (8.5-10.1); CREATININE 1.3 mg/dL (0.7-1.3); GFR 58.7; POTASSIUM 3.9 mmol/L (3.5-5.1)
[2018-06-01 16:49] LABS: BILIRUBIN,URINE NEGATIVE (NEG); CLARITY,URINE CLEAR; COLOR,URINE YELLOW; NITRITE,URINE NEGATIVE (NEG); PROTEIN,URINE 30 mg/dL (NEG-TRACE); UROBILINOGEN,URINE 0.2 mg/dL (0.2 mg/dL)
[2018-06-01 17:00] LABS: BARBITURATES NEG (NEG); BENZODIAZEPINES NEG (NEG); CANNABINOIDS NEG (NEG); COCAINE NEG (NEG); METHADONE NEG (NEG); OPIATES NEG (NEG); PHENCYCLIDINE NEG (NEG)
[2018-06-01 17:01] LABS: AMPHETAMINE/METHAMPHETAMINE NEG (NEG)
[2018-06-01 17:08] LABS: BACTERIA,URINE 0 /HPF (0-FEW); HYALINE CASTS, URINE MODERATE /HPF; RBC,URINE 0 /HPF (0-2); WBC,URINE 0 /HPF (0-4)
[2018-06-01 17:09] LABS: SPERM,URINE PRESENT /HPF
[2018-06-01 17:15] LABS: SALIC < 2.8 mg/dL (2.8-20.0)
[2018-06-01 17:16] LABS: ACETAMIN < 2 mcg/ml (10-30); ETHANOL < 10 mg/dL (0-10)
[2018-06-01 17:33] LABS: ALBUMIN 4.1 g/dL (3.4-5.0); DIRECT BILIRUBIN 0.1 mg/dL (0.0-0.2); TOTAL BILIRUBIN 0.3 mg/dL (0.2-1.0); TOTAL PROTEIN 8.3 g/dL (6.4-8.2)
[2018-06-01] MEDS ORDERED: IV NORMAL SALINE 1000ML BAG 1,000 ML IV SCH (18:15)
[2018-06-01] MEDS ORDERED: ACETAMINOPHEN 325 MG TABLET. PO PRN (18:15)
[2018-06-01] MEDS ORDERED: DOCUSATE SODIUM 100 MG CAPSULE. PO PRN (18:15)
[2018-06-01] MEDS ORDERED: traMADol 50 MG TABLET PO PRN (18:15)
[2018-06-01] MEDS ORDERED: MORPHINE SULFATE 2 MG/ML VIAL. IV PRN (18:15)
[2018-06-01] MEDS ORDERED: ONDANSETRON PF 4 MG/2 ML VIAL. IV PRN (18:15)
--- NOTE | 2018-06-01 20:41 | PDOC1 ---
History and Physical Date of Admission Date of Admission 06/01/18 Identification/Chief Complaint Chief Complaint seizure Source Source: Chart review, Patient History of Present Illness History of Present Illness HPI HPI Patient is a 47 year old male who presents with a reported seizure today. Pt has no PCP, fu with [facility] said they are going to detect if he has any heart problem inducing the seizure. hE is taking keppra 500mg bid given by ERP with 3 months refill. He usually has seizure about once monthly. Today , he was at a [place]ry place, sitting and then woke up in ER. as per ERP, he was found seizure and EMS was called. pt not remember what happened, but knows he blacked out , felt indigestion, denies chest pain, sob. He possibly bite his tounge with pain, wo incontinence. LA 8 in ER. Past Medical History Past Medical History seizure Past Surgical History Past Surgical History: No pertinent history Family History Family History: Hypertension Social History Smoke: No ALCOHOL: none Drugs: None Current Problem List Problem List Problems Medical Problems: (1) Seizure Status: Acute Current Medications Current Medications Current Medications Medications (Trade) Dose Ordered Sig/Whitley Start Time Stop Time Status Last Admin Dose Admin Acetaminophen (Tylenol) 650 mg PRN Q6HRS PRN 06/01/18 18:15 Docusate Sodium (Colace) 100 mg PRN DAILY PRN 06/01/18 18:15 Enoxaparin Sodium (Lovenox 40mg Syringe) 40 mg QHS 06/01/18 21:00 Levetiracetam (Keppra) 500 mg BID 06/01/18 21:00 Morphine Sulfate (Morphine Sulfate) 2 mg PRN Q2HR PRN 06/01/18 18:15 Ondansetron HCl (Zofran) 4 mg PRN Q6HRS PRN 06/01/18 18:15 Sodium Chloride 1,000 ml @ 125 mls/hr Q8H 06/01/18 18:15 Tramadol HCl (Ultram) 50 mg PRN Q6HRS PRN 06/01/18 18:15 Allergies Allergies Allergies Coded Allergies Type Severity Reaction Last Updated Verified Penicillins Allergy Intermediate 07/09/16 Yes ROS Review of System CONSTITUTIONAL: No fever or chills EYES: No recent changes SKIN: No rash or itching CARDIOVASCULAR: No chest pain, syncope, palpitations, or edema RESPIRATORY: No SOB or cough GASTROINTESTINAL: No nausea, vomiting or abdominal pain NEUROLOGICAL: No headaches or weakness ENDOCRINE: No cold or heat intolerance GENITOURINARY: No urgency or frequency of urination MUSCULOSKELETAL: No back pain or joint pain LYMPHATICS: No enlarged lymph nodes PSYCHIATRIC: No anxiety or depression Physical Exam Physical Exam GEN.: No apparent distress. Alert and oriented. HEENT: Head is normocephalic, atraumatic NECK: Supple. LUNGS: Clear to auscultation. HEART: RRR, S1, S2 present. Peripheral pulses intact ABDOMEN: Soft, nontender. Positive bowel sounds. EXTREMITIES: Without any cyanosis. NEUROLOGIC: Normal speech, normal tone PSYCHIATRIC: Normal affect, normal mood. SKIN: No ulcerations Vitals Vitals Vital Signs Date Time Temp Pulse Resp B/P (MAP) Pulse Ox O2 Delivery O2 Flow Rate FiO2 06/01/18 19:49 94 18 99 06/01/18 15:38 98.6 136/79 (98) 98.6 Labs Labs Laboratory Tests Test 06/01/18 15:45 06/01/18 16:40 06/01/18 19:45 White Blood Count 10.5 x10^3/uL (4.0-11.0) Red Blood Count 5.46 x10^6/uL (4.30-5.70) Hemoglobin 16.2 g/dL (13.0-17.5) Hematocrit 47.5 % (39.0-53.0) Mean Corpuscular Volume 87 fL (79-100) Mean Corpuscular Hemoglobin 30 pg (25-35) Mean Corpuscular Hemoglobin Concent 34 g/dL (31-37) Red Cell Distribution Width 13.9 % (11.5-14.5) Platelet Count 243 x10^3/uL (140-400) Neutrophils (%) (Auto) 69 % (31-73) Lymphocytes (%) (Auto) 24 % (24-48) Monocytes (%) (Auto) 5 % (0-9) Eosinophils (%) (Auto) 1 % (0-3) Basophils (%) (Auto) 1 % (0-3) Neutrophils # (Auto) 7.2 x10^3uL (1.8-7.7) Lymphocytes # (Auto) 2.5 x10^3/uL (1.0-4.8) Monocytes # (Auto) 0.6 x10^3/uL (0.0-1.1) Eosinophils # (Auto) 0.1 x10^3/uL (0.0-0.7) Basophils # (Auto) 0.1 x10^3/uL (0.0-0.2) Prothrombin Time 13.3 SEC (11.7-14.0) Prothromb Time International Ratio 1.1 (0.8-1.1) Activated Partial Thromboplast Time 24 SEC (24-38) Sodium Level 140 mmol/L (136-145) Potassium Level 3.9 mmol/L (3.5-5.1) Chloride Level 103 mmol/L (98-107) Carbon Dioxide Level 20 mmol/L (21-32) Anion Gap 17 (6-14) Blood Urea Nitrogen 12 mg/dL (8-26) Creatinine 1.3 mg/dL (0.7-1.3) Estimated GFR (Cockcroft-Gault) 58.7 Glucose Level 122 mg/dL (70-99) Lactic Acid Level 8.6 mmol/L (0.4-2.0) 1.5 mmol/L (0.4-2.0) Calcium Level 9.1 mg/dL (8.5-10.1) Total Bilirubin 0.3 mg/dL (0.2-1.0) Direct Bilirubin 0.1 mg/dL (0.0-0.2) Aspartate Amino Transf (AST/SGOT) 26 U/L (15-37) Alanine Aminotransferase (ALT/SGPT) 27 U/L (16-63) Alkaline Phosphatase 57 U/L (46-116) Ammonia 63 mcmol/L (11-34) Creatine Kinase 212 U/L (39-308) Total Protein 8.3 g/dL (6.4-8.2) Albumin 4.1 g/dL (3.4-5.0) Salicylates Level < 2.8 mg/dL (2.8-20.0) Salicylate Last Dose Date Unk Salicylate Last Dose Time Unk Acetaminophen Level < 2 mcg/ml (10-30) Acetaminophen Last Dose Date Unk Acetaminophen Last Dose Time Unk Ethyl Alcohol Level < 10 mg/dL (0-10) Urine Color Yellow Urine Clarity Clear Urine pH 6.0 Urine Specific [place] 1.020 Urine Protein 30 mg/dL (NEG-TRACE) Urine Glucose (UA) Negative mg/dL (NEG) Urine Ketones (Stick) Negative mg/dL (NEG) Urine Blood Negative (NEG) Urine Nitrite Negative (NEG) Urine Bilirubin Negative (NEG) Urine Urobilinogen Dipstick 0.2 mg/dL (0.2 mg/dL) Urine Leukocyte Esterase Negative (NEG) Urine RBC 0 /HPF (0-2) Urine WBC 0 /HPF (0-4) Urine Bacteria 0 /HPF (0-FEW) Urine Hyaline Casts Moderate /HPF Urine Mucus Marked /LPF Urine Sperm Present /HPF Urine Opiates Screen Neg (NEG) Urine Methadone Screen Neg (NEG) Urine Barbiturates Neg (NEG) Urine Phencyclidine Screen Neg (NEG) Urine Amphetamine/Methamphetamine Neg (NEG) Urine Benzodiazepines Screen Neg (NEG) Urine Cocaine Screen Neg (NEG) Urine Cannabinoids Screen Neg (NEG) Urine Ethyl Alcohol Neg (NEG) Laboratory Tests Test 06/01/18 15:45 06/01/18 16:40 06/01/18 19:45 White Blood Count 10.5 x10^3/uL (4.0-11.0) Red Blood Count 5.46 x10^6/uL (4.30-5.70) Hemoglobin 16.2 g/dL (13.0-17.5) Hematocrit 47.5 % (39.0-53.0) Mean Corpuscular Volume 87 fL (79-100) Mean Corpuscular Hemoglobin 30 pg (25-35) Mean Corpuscular Hemoglobin Concent 34 g/dL (31-37) Red Cell Distribution Width 13.9 % (11.5-14.5) Platelet Count 243 x10^3/uL (140-400) Neutrophils (%) (Auto) 69 % (31-73) Lymphocytes (%) (Auto) 24 % (24-48) Monocytes (%) (Auto) 5 % (0-9) Eosinophils (%) (Auto) 1 % (0-3) Basophils (%) (Auto) 1 % (0-3) Neutrophils # (Auto) 7.2 x10^3uL (1.8-7.7) Lymphocytes # (Auto) 2.5 x10^3/uL (1.0-4.8) Monocytes # (Auto) 0.6 x10^3/uL (0.0-1.1) Eosinophils # (Auto) 0.1 x10^3/uL (0.0-0.7) Basophils # (Auto) 0.1 x10^3/uL (0.0-0.2) Prothrombin Time 13.3 SEC (11.7-14.0) Prothromb Time International Ratio 1.1 (0.8-1.1) Activated Partial Thromboplast Time 24 SEC (24-38) Sodium Level 140 mmol/L (136-145) Potassium Level 3.9 mmol/L (3.5-5.1) Chloride Level 103 mmol/L (98-107) Carbon Dioxide Level 20 mmol/L (21-32) Anion Gap 17 (6-14) Blood Urea Nitrogen 12 mg/dL (8-26) Creatinine 1.3 mg/dL (0.7-1.3) Estimated GFR (Cockcroft-Gault) 58.7 Glucose Level 122 mg/dL (70-99) Lactic Acid Level 8.6 mmol/L (0.4-2.0) 1.5 mmol/L (0.4-2.0) Calcium Level 9.1 mg/dL (8.5-10.1) Total Bilirubin 0.3 mg/dL (0.2-1.0) Direct Bilirubin 0.1 mg/dL (0.0-0.2) Aspartate Amino Transf (AST/SGOT) 26 U/L (15-37) Alanine Aminotransferase (ALT/SGPT) 27 U/L (16-63) Alkaline Phosphatase 57 U/L (46-116) Ammonia 63 mcmol/L (11-34) Creatine Kinase 212 U/L (39-308) Total Protein 8.3 g/dL (6.4-8.2) Albumin 4.1 g/dL (3.4-5.0) Salicylates Level < 2.8 mg/dL (2.8-20.0) Salicylate Last Dose Date Unk Salicylate Last Dose Time Unk Acetaminophen Level < 2 mcg/ml (10-30) Acetaminophen Last Dose Date Unk Acetaminophen Last Dose Time Unk Ethyl Alcohol Level < 10 mg/dL (0-10) Urine Color Yellow Urine Clarity Clear Urine pH 6.0 Urine Specific [place] 1.020 Urine Protein 30 mg/dL (NEG-TRACE) Urine Glucose (UA) Negative mg/dL (NEG) Urine Ketones (Stick) Negative mg/dL (NEG) Urine Blood Negative (NEG) Urine Nitrite Negative (NEG) Urine Bilirubin Negative (NEG) Urine Urobilinogen Dipstick 0.2 mg/dL (0.2 mg/dL) Urine Leukocyte Esterase Negative (NEG) Urine RBC 0 /HPF (0-2) Urine WBC 0 /HPF (0-4) Urine Bacteria 0 /HPF (0-FEW) Urine Hyaline Casts Moderate /HPF Urine Mucus Marked /LPF Urine Sperm Present /HPF Urine Opiates Screen Neg (NEG) Urine Methadone Screen Neg (NEG) Urine Barbiturates Neg (NEG) Urine Phencyclidine Screen Neg (NEG) Urine Amphetamine/Methamphetamine Neg (NEG) Urine Benzodiazepines Screen Neg (NEG) Urine Cocaine Screen Neg (NEG) Urine Cannabinoids Screen Neg (NEG) Urine Ethyl Alcohol Neg (NEG) VTE Prophylaxis Ordered VTE Prophylaxis Devices: Yes VTE Pharmacological Prophylaxi: No Assessment/Plan Assessment/Plan recurrent seizure lactate acidosis plan: ivf neuro consult check keppra level keppra 500mg bid for now FLY BALTAZAR MD Jun 01, 2018 20:41
[2018-06-01 20:47] VITALS: BP 127/76
[2018-06-01] MEDS ORDERED: levETIRAcetam 500 MG TABLET PO SCH (21:00)
[2018-06-01] MEDS ORDERED: ENOXAPARIN 40 MG/0.4 ML SYRINGE. SQ SCH (21:00)
--- NOTE | 2018-06-04 07:18 | EKG ---
[facility] [address] [place] [address] Test Date: 2018-06-01 Test Time: 16:01:14 Pat Name: ETHEL SALMERON Department: Room: Gender: M Crate Opener: : 1970 Requested By: CARINA MANCERA Order Number: [id number] Reading MD: Vasu Pathak Measurements Intervals [place] Rate: 114 P: 5 MD: 132 QRS: 76 QRSD: 108 T: 22 QT: 346 QTc: 481 Interpretive Statements SINUS TACHYCARDIA RIGHT BUNDLE BRANCH BLOCK ABNORMAL ECG Electronically Signed On 06-05-2018 10:50:49 CDT by Vasu Pathak
== END 2018-06-01 20:49 | disposition home or self-care (01) ==
LOC: ER 15:24
DX: G40.909 Epilepsy, unspecified, not intractable, without status epilepticus (principal); E87.2 Acidosis; Z88.0 Allergy status to penicillin
CPT/HCPCS: 36415; 80048; 80076; 80177; 80307; 80329; 81001; 82140; 82550; 83605; 85025; 85610; 85730; 93005; 99285; G0480; G6039; J7030; G0479

== ENCOUNTER 2019-04-15 12:04 | Emergency (ER) | payer SELFPAY ==
[~2019-04-15] VITALS: Ht 180.3 cm; Wt 95.3 kg
[2019-04-15 12:12] VITALS: BP 113/80
[2019-04-15] MEDS ORDERED: LEVE500T56 PO (12:22)
--- NOTE | 2019-04-15 12:22 | PHYS DOC ---
Past Medical History Past Medical History: Seizure Additional Past Medical Histor: "heart conduction dysfunction" Past Surgical History: No Surgical History Alcohol Use: None Drug Use: None Adult General Chief Complaint Chief Complaint: MEDICATION REFILL [facility] HPI Patient is a 48 year old male who presents to the emergency department with a request for his seizure medications to be refilled. Patient states he is unable to find a doctor that will refill his medications and he will run out of the medication tomorrow. states he just obtained health insurance again after starting a new job. He denies any other complaints or concerns. Patient denies any fever, cough, nasal congestion, nausea, vomiting, diarrhea, abdominal pain, or rash. All other ROS is neg unless otherwise noted in HPI. Review of Systems Review of Systems See Above Allergies Allergies Allergies Coded Allergies Type Severity Reaction Last Updated Verified Penicillins Allergy Intermediate 07/09/16 Yes Physical Exam Physical Exam See Above Constitutional: Well developed, well nourished, no acute distress, non-toxic appearance. [] HENT: Normocephalic, atraumatic, bilateral external ears normal, oropharynx moist, no oral exudates, nose normal. [] Eyes: PERRLA, EOMI, conjunctiva normal, no discharge. [] Neck: Normal range of motion, no stridor. [] Lungs & Thorax: Respirations even and unlabored, no retractions, no respiratory distress Skin: Warm, dry, no erythema, no rash. [] Extremities: No cyanosis, ROM intact Neurologic: Alert and oriented X 3, no focal deficits noted. [] Psychologic: Affect normal, judgement normal, mood normal. [] Current Patient Data Vital Signs Vital Signs Date Time Temp Pulse Resp B/P (MAP) Pulse Ox O2 Delivery O2 Flow Rate FiO2 04/15/19 12:12 98.3 92 16 113/80 (91) 94 Room Air 98.3 EKG EKG [] Radiology/Procedures Radiology/Procedures [] Course & Med Decision Making Course & Med Decision Making Pertinent Labs and Imaging studies reviewed. (See chart for details) [] Dragon Disclaimer Dragon Disclaimer This electronic medical record was generated, in whole or in part, using a voice recognition dictation system. Departure Departure Impression: Primary Impression: Medication refill Disposition: HOME, SELF-CARE Condition: STABLE Referrals: NO PCP (PCP) Patient Instructions: Medication Refill, Emergency Department Additional Instructions: Fill the prescription and use as directed. Follow-up with your primary care doctor for future refills of this medication. Return to the ER for any emergencies. Scripts Levetiracetam (KEPPRA) 500 Mg Tablet 1 TAB PO BID for 30 Days, #60 TAB 0 Refills Prov: NOE MCDONALD APRN 04/15/19 NOE MCDONALD APRN Apr 15, 2019 12:22
== END 2019-04-15 12:27 | disposition home or self-care (01) ==
LOC: ER 12:04
DX: R56.9 Unspecified convulsions (principal); Z76.0 Encounter for issue of repeat prescription; Z88.0 Allergy status to penicillin
CPT/HCPCS: 99283

== ENCOUNTER 2020-01-11 10:47 | Emergency (ER) | payer OTHER ==
[~2020-01-11] VITALS: Ht 177.8 cm; Wt 100.0 kg
[~2020-01-11 10:47] MED LIST changes: +CEPH-264 PO; +DOXY100C2 PO
--- NOTE | 2020-01-11 11:18 | PHYS DOC ---
Past Medical History Past Medical History: Seizure Additional Past Medical Histor: "heart conduction dysfunction" Past Surgical History: No Surgical History Smoking Status: Never Smoker Alcohol Use: None Drug Use: None General Adult EDM: Chief Complaint: HEADACHE HPI: HPI: Patient is a 49-year-old male with a history of migraine headaches and seizure disorder. He states he takes Keppra daily for his seizures. He states over the last couple of days he has been under an incredible amount of stress secondary to work issues as well as the pandemic. He has not had any recent seizures. He does state that he has a pretty severe headache at this time. He describes na usea, photophobia and phonophobia. He states this is very typical of his previous migraines. He denies any lateralizing neurologic weakness. [] Review of Systems: Review of Systems: Constitutional: Denies fever or chills. [] Eyes: Denies change in visual acuity. [] HENT: Denies nasal congestion or sore throat. [] Respiratory: Denies cough or shortness of breath. [] Cardiovascular: Denies chest pain or edema. [] GI: Denies abdominal pain, nausea, vomiting, bloody stools or diarrhea. [] : Denies dysuria. [] Musculoskeletal: Denies back pain or joint pain. [] Integument: Denies rash. [] Neurologic: Reports headache per HPI [] Endocrine: Denies polyuria or polydipsia. [] Lymphatic: Denies swollen glands. [] Psychiatric: Very anxious. [] Heart Score: Risk Factors: Risk Factors: DM, Current or recent (<one month) smoker, HTN, HLP, family history of CAD, obesity. Risk Scores: Score 0 - 3: 2.5% MACE over next 6 weeks - Discharge Home Score 4 - 6: 20.3% MACE over next 6 weeks - Admit for Clinical Observation Score 7 - 10: 72.7% MACE over next 6 weeks - Early Invasive Strategies Current Medications: Current Medications Medications (Trade) Dose Ordered Sig/Whitley Start Time Stop Time Status Last Admin Dose Admin Diphenhydramine HCl (Benadryl) 25 mg 1X ONCE 01/11/20 11:15 01/11/20 11:16 UNV Ketorolac Tromethamine (Toradol 30mg Vial) 30 mg 1X ONCE 01/11/20 11:15 01/11/20 11:16 UNV Lorazepam (Ativan Inj) 1 mg 1X ONCE 01/11/20 11:15 01/11/20 11:16 UNV Metoclopramide HCl (Reglan Vial) 10 mg 1X ONCE 01/11/20 11:15 01/11/20 11:16 UNV Sodium Chloride 1,000 ml @ 1,000 mls/hr 1X ONCE 01/11/20 11:15 01/11/20 12:14 UNV Allergies: Allergies: Allergies Coded Allergies Type Severity Reaction Last Updated Verified Penicillins Allergy Intermediate 07/09/16 Yes Physical Exam: PE: Constitutional: Well developed, well nourished, no acute distress, non-toxic appearance. [] HENT: Normocephalic, atraumatic, bilateral external ears normal, oropharynx moist, no oral exudates, nose normal. [] Eyes: PERRLA, EOMI, conjunctiva normal, no discharge. [] Neck: Normal range of motion, no tenderness, supple, no stridor. [] Cardiovascular:Heart rate regular rhythm, no murmur [] Lungs & Thorax: Bilateral breath sounds clear to auscultation [] Abdomen: Bowel sounds normal, soft, no tenderness, no masses, no pulsatile masses. [] Skin: Warm, dry, no erythema, no rash. [] Back: No tenderness, no CVA tenderness. [] Extremities: No tenderness, no cyanosis, no clubbing, ROM intact, no edema. [] Neurologic: Alert and oriented X 3, normal motor function, normal sensory function, no focal deficits noted. [] Psychologic: Extremely anxious. [] EKG: EKG: [] Radiology/Procedures: Radiology/Procedures: [] Course & Med Decision Making: Course & Med Decision Making Pertinent Labs and Imaging studies reviewed. (See chart for details) [ED course: Evaluation reveals a 49-year-old male with what sounds like a migraine headache along with some anxiety. He was given Ativan, Reglan, Toradol and Benadryl with complete resolution of his symptoms. Patient is stable for discharge home.] Dragon Disclaimer: Dragon Disclaimer: This electronic medical record was generated, in whole or in part, using a voice recognition dictation system. Departure Departure Impression: Primary Impression: Migraine Qualified Codes: G43.909 - Migraine, unspecified, not intractable, without status migrainosus Additional Impression: Anxiety about health Disposition: 01 HOME, SELF-CARE Condition: IMPROVED Referrals: NO PCP (PCP) Patient Instructions: Anxiety and Panic Attacks, Migraine Headache Scripts Metoclopramide Hcl (REGLAN) 10 Mg Tablet 1 TAB PO Q8HRS PRN for migraine, #30 TAB Take 25 mg of Benadryl with each dose Prov: NOAH LE DO 01/11/20 NOAH LE DO January 11, 2020 11:18
[2020-01-11 11:22] LABS: BASO % 1 % (0-3); EOS # 0.1 x10^3/uL (0.0-0.7); EOS % 1 % (0-3); HEMATOCRIT 47.4 % (39.0-53.0); HEMOGLOBIN 15.9 g/dL (13.0-17.5); LYMPH # 1.2 x10^3/uL (1.0-4.8); LYMPH % 16 % (24-48); MEAN CORPUSCULAR HEMOGLOBIN 30 pg (25-35); MEAN CORPUSCULAR HGB CONC 34 g/dL (31-37); MEAN CORPUSCULAR VOLUME 88 fL (79-100); MONO # 0.4 x10^3/uL (0.0-1.1); MONO % 5 % (0-9); NEUT # 5.9 x10^3/uL (1.8-7.7); NEUT % 78 % (31-73); PLATELET COUNT 210 x10^3/uL (140-400); RED CELL DISTRIBUTION WIDTH 14.3 % (11.5-14.5); WHITE BLOOD COUNT 7.6 x10^3/uL (4.0-11.0)
[2020-01-11] MEDS: IV NORMAL SALINE 1000ML BAG 1,000 ML IV ONE (11:31)
[2020-01-11] MEDS: METOCLOPRAMIDE HCL 10 MG/2 ML VIAL. IV ONE (11:31)
[2020-01-11] MEDS: KETOROLAC 30 MG/ML VIAL. IV ONE (11:31)
[2020-01-11] MEDS: diphenhydrAMINE 50 MG/ML VIAL IVP ONE (11:32)
[2020-01-11 11:37] LABS: ALBUMIN 3.8 g/dL (3.4-5.0); CALCIUM 8.8 mg/dL (8.5-10.1); GFR 78.8; POTASSIUM 4.3 mmol/L (3.5-5.1); TOTAL BILIRUBIN 0.4 mg/dL (0.2-1.0); TOTAL PROTEIN 7.6 g/dL (6.4-8.2)
[2020-01-11 11:51] LABS: BILIRUBIN,URINE NEGATIVE (NEG); CLARITY,URINE CLEAR; COLOR,URINE YELLOW; NITRITE,URINE NEGATIVE (NEG); PH,URINE 6.5 (<5.0-8.0); PROTEIN,URINE NEGATIVE (NEG-TRACE); UROBILINOGEN,URINE 0.2 mg/dL (0.2 mg/dL)
[2020-01-11 11:55] LABS: SQUAMOUS EPITHELIAL CELL,UR FEW /LPF
[2020-01-11 11:56] LABS: BACTERIA,URINE 0 /HPF (0-FEW); RBC,URINE OCC /HPF (0-2); WBC,URINE OCC /HPF (0-4)
[2020-01-11] MEDS ORDERED: METO10TA81 PO (12:20)
[2020-01-11 12:42] LABS: BARBITURATES NEG (NEG); BENZODIAZEPINES NEG (NEG); CANNABINOIDS NEG (NEG); COCAINE NEG (NEG); METHADONE NEG (NEG); OPIATES NEG (NEG); PHENCYCLIDINE NEG (NEG)
[2020-01-11 12:44] LABS: AMPHETAMINE/METHAMPHETAMINE NEG (NEG)
[2020-01-11 12:55] VITALS: BP 137/80
== END 2020-01-11 13:16 | disposition home or self-care (01) ==
LOC: ER 10:47
DX: G43.909 Migraine, unspecified, not intractable, without status migrainosus (principal); F41.9 Anxiety disorder, unspecified; G40.909 Epilepsy, unspecified, not intractable, without status epilepticus; H53.149 Visual discomfort, unspecified; R11.0 Nausea; Z88.0 Allergy status to penicillin
CPT/HCPCS: 36415; 80053; 80307; 81001; 85025; 96374; 96375; 99284; J1200; J1885; J2060; J2765; J7030